=== PATIENT | male | born 1955 | race Hispanic/Latino ===

== ENCOUNTER 2019-01-22 09:25 | Emergency (ER) | payer SELFPAY ==
--- NOTE | 2019-01-22 10:31 | RAD ---
LEFT KNEE 4 VIEWS: HISTORY: Left knee pain, intermittent swelling. COMPARISON: None. FINDINGS: There is superficial soft tissue swelling in the prepatellar and superficial infrapatellar region, no nspecific. This could potentially represent some superficial infrapatellar bursitis. No fracture or dislocation or joint effusion. IMPRESSION: Nonspecific superficial prepatellar and infrapatellar soft tissue swelling without fracture or disloc ation. POS: OFF
== END 2019-01-22 12:06 | disposition home or self-care (01) ==
LOC: ERS 09:25
DX: R60.0 Localized edema (principal)